=== PATIENT | female | born 1985 | race Caucasian/White ===

== ENCOUNTER 2024-05-22 15:37 | Outpatient (CLI) | payer OTHER | END 2024-05-22 15:38 | disposition home or self-care (01) | LOC: CSHWCC 15:37 | PROVIDERS: ATTEND Nurse Practitioner Family | DX: T81.31XD Disruption of external operation (surgical) wound, not elsewhere classified, subsequent encounter (principal) | CPT/HCPCS: 11042 ==

== ENCOUNTER 2024-05-27 09:48 | Outpatient (CLI) | payer OTHER | END 2024-05-27 09:49 | disposition home or self-care (01) | LOC: CSHWCC 09:48 | PROVIDERS: ATTEND Nurse Practitioner Family | DX: T81.31XD Disruption of external operation (surgical) wound, not elsewhere classified, subsequent encounter (principal) | CPT/HCPCS: 11042 ==

== ENCOUNTER 2024-05-28 08:44 | Outpatient (CLI) | payer BC, OTHER | END 2024-05-28 08:45 | disposition home or self-care (01) | LOC: CSHWCC 08:44 | PROVIDERS: ATTEND Nurse Practitioner Family | DX: T81.31XD Disruption of external operation (surgical) wound, not elsewhere classified, subsequent encounter (principal) | CPT/HCPCS: 97605 ==

== ENCOUNTER 2024-06-09 15:37 | Outpatient (CLI) | payer OTHER | END 2024-06-09 15:38 | disposition home or self-care (01) | LOC: CSHWCC 15:37 | PROVIDERS: ATTEND Nurse Practitioner Family | DX: T81.31XD Disruption of external operation (surgical) wound, not elsewhere classified, subsequent encounter (principal) | CPT/HCPCS: 11042 ==

== ENCOUNTER 2024-06-19 12:47 | Outpatient (CLI) | payer OTHER | END 2024-06-19 12:48 | disposition home or self-care (01) | LOC: CSHWCC 12:47 | PROVIDERS: ATTEND Nurse Practitioner Family | DX: T81.31XD Disruption of external operation (surgical) wound, not elsewhere classified, subsequent encounter (principal) | CPT/HCPCS: 97607 ==

== ENCOUNTER 2024-06-23 10:18 | Outpatient (CLI) | payer OTHER | END 2024-06-23 10:19 | disposition home or self-care (01) | LOC: CSHWCC 10:18 | PROVIDERS: ATTEND Nurse Practitioner Family | DX: T81.31XD Disruption of external operation (surgical) wound, not elsewhere classified, subsequent encounter (principal) | CPT/HCPCS: 97597; 97605 ==

== ENCOUNTER 2024-06-30 14:56 | Outpatient (CLI) | payer OTHER | END 2024-06-30 14:57 | disposition home or self-care (01) | LOC: CSHWCC 14:56 | PROVIDERS: ATTEND Nurse Practitioner Family | DX: T81.31XD Disruption of external operation (surgical) wound, not elsewhere classified, subsequent encounter (principal) | CPT/HCPCS: 11042; 99212; G0463 ==

== ENCOUNTER 2024-07-07 13:56 | Outpatient (CLI) | payer OTHER | END 2024-07-07 13:57 | disposition home or self-care (01) | LOC: CSHWCC 13:56 | PROVIDERS: ATTEND Nurse Practitioner Family | DX: T81.31XD Disruption of external operation (surgical) wound, not elsewhere classified, subsequent encounter (principal) | CPT/HCPCS: 99213; G0463 ==

== ENCOUNTER 2024-07-14 15:20 | Outpatient (CLI) | payer OTHER | END 2024-07-14 15:21 | disposition home or self-care (01) | LOC: CSHWCC 15:20 | PROVIDERS: ATTEND Nurse Practitioner Family | DX: T81.31XD Disruption of external operation (surgical) wound, not elsewhere classified, subsequent encounter (principal) | CPT/HCPCS: 99212; G0463 ==